=== PATIENT | male | born 1975 | race Caucasian/White ===

== ENCOUNTER 2021-09-15 14:15 | Emergency (ER) | payer SELFPAY ==
[~2021-09-15 14:15] MED LIST: Iopamidol 370 76% 100 ML VIAL ONE
[2021-09-15 14:55] LABS: #Basophils 0.2 thou/uL (0.0-0.2); #Eosinphils 0.4 thou/uL (0.0-0.7); #Lymphocytes 2.5 thou/uL (1.20-3.40); #Monocytes 0.6 thou/uL (0.11-0.59); #Neutrophils 5.7 thou/uL (1.40-6.50); %Basophils 1.8 % (0.0-1.0); %Eosinophils 4.3 % (0.0-10.0); %Lymphocytes 26.8 % (21.0-51.0); %Monocytes 6.4 % (0.0-10.0); %Neutrophils 60.8 % (42.0-75.0); Hemoglobin 17.3 g/dL (14.0-18.0); Mean Corpuscular HGB CONC 30.1 g/dL (32.0-36.0); Mean Corpuscular Hemoglobin 30.7 pg (27.0-31.0); Mean Corpuscular Volume 101.9 fL (78.0-98.0); Mean Platelet Volume 10.3 fL (7.4-10.4); Platelet Count 224 thou/uL (130-400); Red Blood Cell (RBC) Count 5.65 mill/uL (4.70-6.10); White Blood Cell (WBC) Count 9.3 thou/uL (4.8-10.8)
[2021-09-15] MEDS ORDERED: Ondansetron PF 4 MG/2 ML Vial ONE (14:56)
[2021-09-15] MEDS ORDERED: Sodium Chloride 0.9% 1,000 ML ONE (14:56)
[2021-09-15] MEDS ORDERED: Ketorolac Tromethamine 30 MG/ML VIAL ONE (14:56)
[2021-09-15 15:08] LABS: ALT (SGPT) 22 U/L (8-55); AST (SGOT) 26 U/L (5-34); Albumin 4.4 g/dL (3.5-5.0); Alkaline Phosphatase 57 U/L (40-110); Anion Gap 17 mmol/L (10-20); BUN (Urea Nitrogen) 18 mg/dL (8.9-20.6); Bilirubin, Total 2.3 mg/dL (0.2-1.2); Calc. Creatinine Clearance 0 mL/min (70-130); Calcium 9.5 mg/dL (7.8-10.44); Carbon Dioxide 25 mmol/L (22-29); Chloride 102 mmol/L (98-107); Globulin 2.7 g/dL (2.4-3.5); Glucose 90 mg/dL (70-105); Magnesium 1.9 mg/dL (1.6-2.6); Potassium 4.6 mmol/L (3.5-5.1); Protein, Total 7.1 g/dL (6.0-8.3); Sodium 139 mmol/L (136-145)
[2021-09-15 15:56] LABS: Bilirubin Negative (Negative); Blood, Urine Negative (Negative); Clarity Clear (Clear); Glucose, Urine (Dipstick) Negative (Negative); Ketone, Urine 15 mg/dL (Negative); Leukocyte Negative (Negative); Nitrite Negative (Negative); Protein, Urine (Dipstick) Negative (Neg-Trace)
[2021-09-15 15:58] LABS: Specific Gravity, Urine 1.028 (1.002-1.036)
[2021-09-15 16:50] LABS: THC/Cannabinoid Screen Detected (NotDetected)
[2021-09-15 16:51] LABS: Amphetamine Detected (NotDetected); Barbiturates Screen Not Detected (NotDetected); Benzodiazepine Screen Not Detected (NotDetected); Cocaine Metabolite Screen Not Detected (NotDetected); Medtox Control Line Valid? VALID (VALID); Methadone Not Detected (NotDetected); Methamphetamine Detected (NotDetected); Opiate Screen Not Detected (NotDetected); Oxycodone Screen Not Detected (NotDetected); Phencyclidine (PCP) Not Detected (NotDetected); Tricyclic Screen Not Detected (NotDetected)
[2021-09-15] MEDS ORDERED: Dicyclomine 20 MG/2 ML VIAL ONE (17:06)
== END 2021-09-15 17:45 | disposition home or self-care (01) ==
LOC: MADERS 14:15
DX: E86.0 Dehydration (principal); F15.10 Other stimulant abuse, uncomplicated; F12.10 Cannabis abuse, uncomplicated; F17.210 Nicotine dependence, cigarettes, uncomplicated
CPT/HCPCS: 74177; 80053; 80306; 81003; 83690; 83735; 85025; 96372; 96374; 96375; J0500; J1885; J2405; J7050; Q9967